=== PATIENT | male | born 1975 | race Caucasian/White ===

== ENCOUNTER 2017-01-09 12:46 | Emergency (ER) | payer SELFPAY ==
[~2017-01-09] VITALS: Ht 177.8 cm; Wt 93.0 kg
[~2017-01-09 12:46] MED LIST: CIPR500T4 PO; TRIA.1%T TOP
[2017-01-09 12:52] VITALS: BP 157/83; PULSE 58; RESP 16; TEMP 97.7; O2SAT 97
[2017-01-09] MEDS ORDERED: AMLO5TAB2 PO (13:10)
[2017-01-09] MEDS ORDERED: LISI10TA3 PO (13:42)
--- NOTE | 2017-01-09 13:47 | PD ---
HPI Chief Complaint: Hypertension Time Seen by Provider: 13:32 Travel History International Travel<30 days: No Contact w/Intl Traveler<30days: No Traveled to known affect area: No History of Present Illness HPI This patient checked his blood pressure and was 180 systolic. He had some vague malaise but no headache or chest pain or neurologic complaint. He does have history of hypertension and was taking amlodipine daily. However he has no health insurance and could not afford it or to go to a doctor. He's not been on any medication lately. Current blood pressure right now is 139/79. Severity is mild PFSH Past Medical History Hx Anticoagulant Therapy: No Arthritis: No Asthma: No Autoimmune Disease: No Anxiety: Yes Depression: No Heart Rhythm Problems: No Cancer: No Cardiovascular Problems: Yes (HTN) High Cholesterol: No Chemotherapy: No Chest Pain: No Congestive Heart Failure: No COPD: No Cerebrovascular Accident: No Diabetes: No Endocrine: No GERD: No Genitourinary: No Hiatal Hernia: No Hypertension: Yes Immune Disorder: No Kidney Stones: No Musculoskeletal: No Neurologic: No Psychiatric: Yes Reproductive: No Respiratory: No Migraines: No Radiation Therapy: No Renal Failure: No Seizures: No Sickle Cell Disease: No Sleep Apnea: No Thyroid Disease: No Ulcer: No Tetanus Vaccination: < 5 Years Influenza Vaccination: No Past Surgical History Abdominal Surgery: No AICD: No Arteriovenous Shunt: No Body Medical Devices: wears contact Cardiac Surgery: No Ear Surgery: No Endocrine Surgery: No Eye Surgery: No Genitourinary Surgery: No Gynecologic Surgery: No Insulin Pump: No Joint Replacement: Yes (IM Nailing of Left hip) Oral Surgery: No Pacemaker: No Thoracic Surgery: No Social History Alcohol Use: No (Quit 6 weeks ago ) Tobacco Use: No Substance Use: No Allergies-Medications (Allergen,Severity, Reaction): Coded Allergies: No Known Allergies (Unverified , 01/09/17) Reported Meds & Prescriptions Reported Meds & Active Scripts Active Reported Amlodipine (Amlodipine Besylate) 5 Mg Tab 5 Mg PO DAILY Review of Systems General / Constitutional: No: Fever HENT: No: Headaches Cardiovascular: No: Chest Pain or Discomfort Respiratory: No: Cough Physical Exam Narrative GENERAL: Well-nourished, well-developed patient in no apparent distress. SKIN: Focused skin assessment reveals no rash and nodules. Skin is Warm and dry. HEAD: Atraumatic. Normocephalic. EYES: Pupils equal and round. No scleral icterus. No injection or drainage. ENT: No nasal bleeding or discharge. Mucous membranes pink and moist. NECK: Trachea midline. No JVD. CARDIOVASCULAR: Regular rate and rhythm. No murmur appreciated. RESPIRATORY: No accessory muscle use. Clear to auscultation. Breath sounds equal bilaterally. GASTROINTESTINAL: Abdomen soft, non-tender, nondistended. Hepatic and splenic margins not palpable. MUSCULOSKELETAL: No obvious deformities. No clubbing. No cyanosis. No edema. NEUROLOGICAL: Awake and alert. No obvious cranial nerve deficits. Motor grossly within normal limits. Normal speech. PSYCHIATRIC: Appropriate mood and affect; insight and judgment normal. Data Data Last Documented VS Vital Signs Date Time Temp Pulse Resp B/P Pulse Ox O2 Delivery O2 Flow Rate FiO2 01/09/17 12:52 97.7 58 16 157/83 97 MDM Medical Decision Making Medical Screen Exam Complete: Yes Emergency Medical Condition: Yes Medical Record Reviewed: Yes Differential Diagnosis Accelerated hypertension, essential hypertension, hypertensive urgency Narrative Course I have reviewed the patient's electronic medical record. Patient's current blood pressure is normal. His exam is normal I did write him a prescription for lisinopril 10 mg daily. He will be able to get this free at [email or web address]. He does know that he needs a family physician help guide his hypertensive therapy and not to rely on ER prescriptions. I've advised him to get a blood pressure cuff at home and check and record daily. Diagnosis Primary Impression: Hypertension Qualified Code: I10 - Hypertension, unspecified type Additional Instructions: The patient was advised to follow up with their physician and return if they worsen. Check and record blood pressure daily Med/Other Pt SpecificInfo: Prescription(s) given Scripts Lisinopril 10 Mg Tab10 Mg PO DAILY #30 TAB Ref 1 Prov:Mino Carmona MD 01/09/17 Disposition: 01 DISCHARGE HOME Condition: Stable Mino Carmona MD Jan 09, 2017 13:47
== END 2017-01-09 14:05 | disposition home or self-care (01) ==
LOC: PHED 12:46
DX: I10 Essential (primary) hypertension (principal)
CPT/HCPCS: 99283

== ENCOUNTER 2017-07-31 13:03 | Emergency (ER) | payer SELFPAY ==
[~2017-07-31] VITALS: Ht 177.8 cm; Wt 94.5 kg
[~2017-07-31 13:03] MED LIST changes: +AMLO5TAB2 PO; -CIPR500T4 PO; +LISI10TA3 PO; -TRIA.1%T TOP
[2017-07-31 13:21] VITALS: BP 150/91; PULSE 75; RESP 16; TEMP 98.2; O2SAT 98
--- NOTE | 2017-07-31 15:05 | PD ---
HPI Chief Complaint: Headache Time Seen by Provider: 15:00 Travel History International Travel<30 days: No Contact w/Intl Traveler<30days: No Traveled to known affect area: No History of Present Illness HPI This is a 42-year-old male with history of hypertension presents for evaluation of intermittent dizziness and headaches. Symptoms started a few days ago. He describes intermittent dull frontal headaches with associated dizziness/ lightheadedness that is primarily positional, worse when standing. He had these symptoms yesterday evening and this is what prompted evaluation today. Currently asymptomatic. He reports that a few days ago he had a physical for new employment position and his blood pressure was noted to be 180/110 and he feels that his high blood pressures likely treating the symptoms that he has been experiencing. He reports that in the past 2 is on lisinopril 10 mg once a day however he ran out of it 2.5 months ago and has been unable to follow-up secondary to insurance constraints. Denies any blurred vision, chest pain or shortness of breath, nausea or vomiting, abdominal pain. He has no other complaints. PFSH Past Medical History Hx Anticoagulant Therapy: No Arthritis: No Asthma: No Autoimmune Disease: No Anxiety: Yes Depression: No Heart Rhythm Problems: No Cancer: No Cardiovascular Problems: Yes (HTN) High Cholesterol: No Chemotherapy: No Chest Pain: No Congestive Heart Failure: No COPD: No Cerebrovascular Accident: No Diabetes: No Endocrine: No GERD: No Genitourinary: No Hiatal Hernia: No Hypertension: Yes Immune Disorder: No Kidney Stones: No Musculoskeletal: No Neurologic: No Psychiatric: Yes Reproductive: No Respiratory: No Migraines: No Radiation Therapy: No Renal Failure: No Seizures: No Sickle Cell Disease: No Sleep Apnea: No Thyroid Disease: No Ulcer: No Past Surgical History Abdominal Surgery: No AICD: No Arteriovenous Shunt: No Body Medical Devices: wears contact Cardiac Surgery: No Ear Surgery: No Endocrine Surgery: No Eye Surgery: No Genitourinary Surgery: No Gynecologic Surgery: No Insulin Pump: No Joint Replacement: Yes (IM Nailing of Left hip) Oral Surgery: No Pacemaker: No Thoracic Surgery: No Social History Alcohol Use: No (Quit 6 weeks ago ) Tobacco Use: No Substance Use: No Allergies-Medications (Allergen,Severity, Reaction): Coded Allergies: No Known Allergies (Unverified Adverse Reaction, Unknown, 1/31/18) Reported Meds & Prescriptions Reported Meds & Active Scripts Active Lisinopril 10 Mg Tab 10 Mg PO DAILY Review of Systems Except as stated in HPI: all other systems reviewed are Neg Physical Exam Narrative GENERAL: Well-developed well-nourished male in no acute distress SKIN: Warm and dry. HEAD: Atraumatic. Normocephalic. EYES: Pupils equal and round. No scleral icterus. No injection or drainage. ENT: No nasal bleeding or discharge. Mucous membranes pink and moist. NECK: Trachea midline. No JVD. CARDIOVASCULAR: Regular rate and rhythm. No murmur appreciated. RESPIRATORY: No accessory muscle use. Clear to auscultation. Breath sounds equal bilaterally. GASTROINTESTINAL: Abdomen soft, non-tender, nondistended. Hepatic and splenic margins not palpable. MUSCULOSKELETAL: No obvious deformities. No clubbing. No cyanosis. No edema. NEUROLOGICAL: Awake and alert. No obvious cranial nerve deficits. Motor grossly within normal limits. Normal speech. PSYCHIATRIC: Appropriate mood and affect; insight and judgment normal. Data Data Last Documented VS Vital Signs Date Time Temp Pulse Resp B/P (MAP) Pulse Ox O2 Delivery O2 Flow Rate FiO2 07/31/17 13:21 98.2 75 16 150/91 (110) 98 Orders Orders Complete Blood Count With Diff (07/31/17 15:00) Basic Metabolic Panel (Bmp) (07/31/17 15:00) Ct Brain W/O Iv Contrast(Rout) (07/31/17 15:00) Electrocardiogram (07/31/17 ) Ed Discharge Order (07/31/17 15:58) Labs Laboratory Tests Test 07/31/17 15:15 White Blood Count 3.8 TH/MM3 Red Blood Count 5.12 MIL/MM3 Hemoglobin 16.2 GM/DL Hematocrit 47.5 % Mean Corpuscular Volume 92.9 FL Mean Corpuscular Hemoglobin 31.6 PG Mean Corpuscular Hemoglobin Concent 34.1 % Red Cell Distribution Width 11.8 % Platelet Count 185 TH/MM3 Mean Platelet Volume 7.0 FL Neutrophils (%) (Auto) 49.5 % Lymphocytes (%) (Auto) 37.3 % Monocytes (%) (Auto) 10.7 % Eosinophils (%) (Auto) 2.0 % Basophils (%) (Auto) 0.5 % Neutrophils # (Auto) 1.9 TH/MM3 Lymphocytes # (Auto) 1.4 TH/MM3 Monocytes # (Auto) 0.4 TH/MM3 Eosinophils # (Auto) 0.1 TH/MM3 Basophils # (Auto) 0.0 TH/MM3 CBC Comment DIFF FINAL Differential Comment Blood Urea Nitrogen 14 MG/DL Creatinine 1.00 MG/DL Random Glucose 152 MG/DL Calcium Level 9.0 MG/DL Sodium Level 138 MEQ/L Potassium Level 3.7 MEQ/L Chloride Level 104 MEQ/L Carbon Dioxide Level 30.4 MEQ/L Anion Gap 4 MEQ/L Estimat Glomerular Filtration Rate 82 ML/MIN MDM Medical Decision Making Medical Screen Exam Complete: Yes Emergency Medical Condition: Yes Medical Record Reviewed: Yes Differential Diagnosis Essential hypertension, hypertensive urgency, hypertensive emergency Narrative Course 42-year-old male with history of hypertension who ran out of his lisinopril 2.5 months ago presents with intermittent frontal headaches and positional dizziness over the past few days with a recorded elevated blood pressure at a physical examination a few days ago. He has no focal neurologic deficits. His blood pressure is 150/91. CT the brain reveals no acute abnormalities. EKG reveals normal sinus rhythm. CBC and BMP were obtained revealing no acute abnormality. The patient was asymptomatic during his hospital stay. He will be given a refill of his lisinopril but he understands that he needs to establish care with a primary care physician to continue management of this chronic condition. He is stable for discharge. Diagnosis Primary Impression: Hypertension Additional Impression: Cephalgia Additional Instructions: Medication as prescribed. Monitor blood pressure on a regular basis and keep a journal of the readings. Follow-up with a primary care physician for continuing management of your chronic hypertension. Med/Other Pt SpecificInfo: Prescription(s) given Scripts Lisinopril (Lisinopril) 10 Mg Tab 10 MG PO DAILY, #30 TAB 1 Refill Prov: Dennis Harris MD 07/31/17 Disposition: 01 DISCHARGE HOME Condition: Stable Donny Kraus Jul 31, 2017 15:05
[2017-07-31 15:26] LABS: AUTOMATED NEUTROPHIL # 1.9 TH/MM3 (1.8-7.7); BASOPHIL % 0.5 % (0.0-2.0); EOSINOPHIL # 0.1 TH/MM3 (0-0.4); HEMATOCRIT 47.5 % (39.0-51.0); HEMOGLOBIN 16.2 GM/DL (13.0-17.0); LYMPH % 37.3 % (9.0-44.0); LYMPHOCYTE # 1.4 TH/MM3 (1.0-4.8); MEAN CELL VOLUME 92.9 FL (80.0-100.0); MEAN CORPUSCULAR HEMOGLOBIN 31.6 PG (27.0-34.0); MEAN CORPUSCULAR HGB CONC 34.1 % (32.0-36.0); MONO % 10.7 % (0.0-8.0); MONOCYTE # 0.4 TH/MM3 (0-0.9); NEUT % 49.5 % (16.0-70.0); PLATELET COUNT 185 TH/MM3 (150-450); RED BLOOD COUNT 5.12 MIL/MM3 (4.50-5.90); RED CELL DISTRIBUTION WIDTH 11.8 % (11.6-17.2); WHITE BLOOD COUNT 3.8 TH/MM3 (4.0-11.0)
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
[2017-07-31 15:37] LABS: BICARBONATE 30.4 MEQ/L (21.0-32.0)
[2017-07-31] MEDS ORDERED: LISI10TA3 PO (15:58)
--- NOTE | 2017-08-01 05:24 | EKG ---
Date Performed: 07/31/2017 Time Performed: 15:11:02 PTAGE: 42 years EKG: Sinus rhythm NONSPECIFIC T-WAVE ABNORMALITY BORDERLINE ECG NO PREVIOUS TRACING DOCTOR: Hood Whatley Interpretating Date/Time 08/01/2017 05:24:17
== END 2017-07-31 16:29 | disposition home or self-care (01) ==
LOC: PHED 13:03 → PHEFT 16:29
DX: I10 Essential (primary) hypertension (principal); R51 Headache; Z79.899 Other long term (current) drug therapy
CPT/HCPCS: 70450; 80048; 85025; 93005; 99285